=== PATIENT | female | born 1975 | race Hispanic/Latino ===

== ENCOUNTER → 2022-12-23 16:20 | Outpatient (CLI) | payer OTHER, SELFPAY ==
--- NOTE | 2022-12-23 16:23 | DI.US.S_ITS ---
PROCEDURE: US THYROID INDICATIONS: THYROID NODULE TECHNIQUE: Real-time scanning was performed of the thyroid gland, with image documentation. COMPARISON: None. FINDINGS: Right: Thyroid lobe measures 5.011.2 x 1.3 cm, and has a cystic nodule, but is otherwise homogeneous in echotexture. Left: Thyroid lobe measures 4.3 x 0.7 x 1.3 cm, and is homogenous in echotexture. Isthmus: 3 mm thick. Nodule number: 1 Location: Right lower pole Size: 0.5 x 0.4 x 0.4 cm. Composition: Predominantly cystic Echogenicity: Hypoechoic Shape: wider than tall. Margins: Smooth Echogenic foci: Macro calcifications Total points: 3 ACR TI-RADS category: Mildly suspicious IMPRESSION: Solitary small, mildly suspicious thyroid nodule in the right lobe, measuring 5 mm. Based on recommendations below, no further follow-up is required. ACR TI-RADS definitions and recommendations: TI-RADS 1 (benign): 0 points. FNA not needed. TI-RADS 2 (not suspicious): 2 points. FNA not needed. TI-RADS 3 (mildly suspicious): 3 points. * FNA if 2.5 cm or larger, follow up if 1.5 cm or larger (at 1, 3, and 5 years). TI-RADS 4 (moderately suspicious): 4-6 points. * FNA if 1.5 cm or larger, follow up if 1 cm or larger (at 1, 2, 3, and 5 years). TI-RADS 5 (highly suspicious): 7 points or more. * FNA if 1 cm or larger, follow up if 0.5 cm or larger (every year for 5 years). Dictated by: Sumit Marte M.D. on 12/24/2022 at 9:14 Approved by: Sumit Marte M.D. on 12/24/2022 at 9:18
== END ==
PROVIDERS: Family Provider Obstetrics & Gynecology; PCP Family Medicine; Referring Provider Otolaryngology; Visit Provider Otolaryngology
DX: E04.1 Nontoxic single thyroid nodule (principal)
CPT/HCPCS: 76536

== ENCOUNTER 2024-07-01 09:04 | Emergency (ER) | payer OTHER, SELFPAY ==
[2024-07-01 09:22] VITALS: BP 130/72; PULSE 85; RESP 16; TEMP 36.6; O2SAT 100; BMI 20.2
--- NOTE | 2024-07-01 10:29 | PC.NURSE ---
Pt reports post menopausal bleeding, cramping, and bloating.
[2024-07-01 10:39] LABS: Amorphous Sediment Urine 1+; Bacteria Urine None Seen; Culture Indicated Urine Cult Not Indicated; RBC Urine 10-30/HPF (0-5/HPF); Squamous Epithelial Cell Urine 0-1 /HPF (0-5/HPF); Urine Volume 10mL (spun); WBC Urine 0-1/HPF (0-5/HPF)
--- NOTE | 2024-07-01 10:39 | DI.US.S_ITS ---
PROCEDURE: US PELVIC COMPLETE INDICATIONS: abnormal bleeding TECHNIQUE: Real-time scanning was performed of the pelvic organs, with image documentation. Additional endovaginal scanning was necessary due to incomplete visualization of the adnexal and endometrial structures by transabdominal scanning. COMPARISON: None. FINDINGS: Uterus: Uterus is retroverted and bulky at 8.8 x 5.6 x 5.9 cm. The myometrium is quite heterogenous. The endometrium measures 12.4 mm combined thickness. Fundal myometrial mass lesion 2.9 x 2.5 x 3.4 connects to the endometrial stripe and shows peripheral hypervascularity Ovaries: Nonvisualized Other: Moderate free fluid IMPRESSION: Irregular endometrium associated with mass lesion extending into the myometrium. Advise PLAYGROUND OFFICIAL consult and endometrial biopsy. Approved by: Huy Burgos M.D. on 07/01/2024 at 11:30
--- NOTE | 2024-07-01 10:55 | ED.FEMALEGU ---
HPI - Female Genitourinary General Chief complaint: Urogenital-Female Stated complaint: period bleeding and throuigh menopause already Time Seen by Provider: 07/01/24 09:39 History of Present Illness HPI Narrative: Patient is a 48-year-old female presenting today with vaginal bleeding. She reports that she has not had menstrual period for a year and a half. She says she went menopause. However last night she started having vaginal bleeding. She filled up a full pad in about an hour and half and then had significant leakage blood this morning. She feels like she has some bloating. She has had ongoing abdominal pain decreased appetite for awhile. She denies significant weight loss. She has not currently on hormone therapy. She was started on fluoxetine month ago for depression however 2 days ago was changed to bupropion. She felt like she was having some back pain and stomach pain yesterday. She did take some Tylenol ibuprofen. Related Data Previous Rx's Medication Instructions Recorded hydrocodone 5 mg-acetaminophen 325 1 tab PO Q6H PRN pain #14 tabs 07/01/24 mg tablet megestrol 40 mg tablet 80 mg (2 x 40 mg) PO BID #60 tabs 07/01/24 Allergies Allergy/AdvReac Type Severity Reaction Status Date / Time INGREDIENT: NKDA - NO KNOWN Allergy Unknown Uncoded 01/04/18 12:17 DRUG ALLERGIES Patient History Substance Use Type: does not use Exam Initial Vital Signs Initial Vital Signs: Vital Signs Temperature 97.8 F 07/01/24 09:22 Pulse Rate 85 07/01/24 09:22 Respiratory Rate 16 07/01/24 09:22 Blood Pressure 130/72 07/01/24 09:22 Pulse Oximetry 100 07/01/24 09:22 Oxygen Delivery Method Room Air 07/01/24 09:22 GENERAL: Alert pleasant well-appearing 48-year-old female and in no acute distress. HEENT: Head atraumatic,EOMI, pupils reactive, face symmetric, moist mucous membranes CARDIOVASCULAR: Regular rate and rhythm without murmurs, rubs or gallops. RESPIRATORY: Breath sounds equal bilaterally, no wheezes rales or rhonchi. ABDOMEN: Soft, nontender. Normoactive bowel sounds all 4 quadrants. No guarding or rebound. : No significant CVA pain EXTREMITIES: Normal range of motion, no clubbing or edema. Neurovascularly intact NEUROLOGICAL: Alert and oriented x4.Normal gait and speech. SKIN: Warm, dry, no laceration, no petechiae, no rashes or lesions. Course Orders Ordered: ED Orders 07/01/24 10:55 CT abdomen pelvis w con Stat 07/01/24 11:20 CBC Auto Diff [Complete Blood Count AUTO DIFF] Stat CMP [Comprehensive Metabolic Panel] Stat 07/01/24 15:30 Hemoglobin and Hematocrit Stat Discontinued Medications Hydrocodone Bitart/Acetaminophen (Hydrocodone/Acet 5/325 Prepack) 1 bottle MISC DIRECTED ONE Stop: 07/01/24 16:59 Last Admin: 07/01/24 17:07 Dose: Not Given Documented By: EDGARDO Tranexamic Acid 1,000 mg/ (Sodium Chloride) 100 mls @ 200 mls/hr IV NOW ONE Stop: 07/01/24 13:36 Last Infusion: 07/01/24 15:12 Dose: Infused Documented By: Admin: 07/01/24 13:22 Dose: 200 mls/hr Documented By: EDGARDO Acetaminophen (Ofirmev) 1,000 mg in 100 mls @ 400 mls/hr IV NOW ONE Stop: 07/01/24 13:24 Last Infusion: 07/01/24 13:48 Dose: Infused Documented By: Admin: 07/01/24 13:21 Dose: 400 mls/hr Documented By: EDGARDO Ondansetron HCl (Ondansetron 4 Mg/2 Ml Inj) 4 mg IV NOW PRN PRN Reason: Nausea And Vomiting Ondansetron HCl (Ondansetron 4 Mg Odt) 4 mg SL NOW PRN PRN Reason: Nausea And Vomiting Vital Signs Vital signs: Vital Signs - 8 hr 07/01/24 12:13 07/01/24 12:13 07/01/24 14:55 Pulse Rate 70 77 Respiratory Rate Blood Pressure 100/52 L Pulse Oximetry 100 100 Oxygen Delivery Method 07/01/24 14:55 07/01/24 15:00 07/01/24 15:28 Pulse Rate 76 Respiratory Rate 16 Blood Pressure 101/65 Pulse Oximetry 99 99 Oxygen Delivery Method 07/01/24 15:28 07/01/24 17:05 Pulse Rate 78 Respiratory Rate 16 Blood Pressure 129/60 113/61 Pulse Oximetry 98 Oxygen Delivery Method Room Air Room Air MDM - Female Genitourinary Lab Data 07/01/24 15:30 07/01/24 11:20 Labs: Lab Results 07/01/24 07/01/24 07/01/24 Range/Units 09:50 11:20 15:30 WBC 7.8 (4.5-11.0) X10^3/uL RBC 4.23 (4.0-5.2) X10^6/uL Hgb 11.5 L 10.8 L (12.0-16.0) g/dL Hct 35.0 L 32.9 L (36-46) % MCV 82.6 (80-100) fL MCH 27.3 (26-34) PG MCHC 33.0 (30-36) % RDW 14.0 (11.6-14.8) % Plt Count 271 (150-400) X10^3/uL Neut % (Auto) 73.6 (50-75) % Lymph % (Auto) 20.9 L (25-40) % [place] % (Auto) 4.4 (3-14) % Eos % (Auto) 0.7 L (2-4) % Baso % (Auto) 0.4 (0-2) % Neut # (Auto) 5700 (3035-0715) /uL Lymph # (Auto) 1600 (0208-9149) /uL [place] # (Auto) 300 (0-900) /uL Eos # (Auto) 100 (0-450) /uL Baso # (Auto) 0 (0-100) /uL Sodium 137 (137-145) mmol/L Potassium 3.8 (3.4-5.1) mmol/L Chloride 108 H (98-107) mmol/L Carbon Dioxide 23 (22-32) mmol/L BUN 9 (7-17) mg/dL Creatinine 0.58 (0.52-1.04) mg/dL Estimated GFR > 60 (>60) mL/min BUN/Creatinine Ratio 15.5 (6-22) Glucose 104 H (70-100) mg/dL Calcium 8.5 (8.4-10.2) mg/dL Total Bilirubin 0.7 (0.2-1.3) mg/dL AST 24 (14-36) IU/L ALT 15 (<35) IU/L Alkaline Phosphatase 76 (38-126) U/L Total Protein 7.1 (6.3-8.2) g/dL Albumin 4.3 (3.5-5.0) g/dL Globulin 2.8 (1.7-4.1) g/dL Albumin/Globulin Ratio 1.5 (1.0-2.8) Urine RBC 10-30/hpf H (0-5/HPF) Urine WBC 0-1/hpf (0-5/HPF) Ur Squamous Epith Cells 0-1 /hpf (0-5/HPF) Amorphous Sediment 1+ Urine Bacteria None seen (None) Ur Culture Indicated? Cult not indicated Vol Urine Centrifuged 10ml (spun) Point of Care Testing Test Results Negative Urine Dip Bedside Urine Glucose Negative Bedside Urine Bilirubin - Negative Bedside Urine Ketone - Negative Urine Specific [place] 1.015 Bedside Urine Occult Blood ++ Bedside Urine pH 5.5 Bedside Urine Protein - Negative Bedside Urine Urobilinogen - Negative Bedside Urine Nitrite - Negative Bedside Urine Leukocytes - Negative Esterase Imaging Data US - DE ICER FINISHER: Radiologist's Impression: PROCEDURE: US PELVIC COMPLETE INDICATIONS: abnormal bleeding TECHNIQUE: Real-time scanning was performed of the pelvic organs, with image documentation. Additional endovaginal scanning was necessary due to incomplete visualization of the adnexal and endometrial structures by transabdominal scanning. COMPARISON: None. FINDINGS: Uterus: Uterus is retroverted and bulky at 8.8 x 5.6 x 5.9 cm. The myometrium is quite heterogenous. The endometrium measures 12.4 mm combined thickness. Fundal myometrial mass lesion 2.9 x 2.5 x 3.4 connects to the endometrial stripe and shows peripheral hypervascularity Ovaries: Nonvisualized Other: Moderate free fluid IMPRESSION: Irregular endometrium associated with mass lesion extending into the myometrium. Advise DE ICER FINISHER consult and endometrial biopsy. Approved by: Huy Burgos M.D. on 07/01/2024 at 11:30 CT scan - abdomen/pelvis: Radiologist's Impression: PROCEDURE: CT ABDOMEN PELVIS W CON INDICATIONS: Pain, weight loss, postmenopausal bleeding TECHNIQUE: After the administration of intravenous contrast, axial sections acquired from the lung bases to the pubic symphysis. Coronal and sagittal reformats were performed. For radiation dose reduction, the following was used: automated exposure control, adjustment of mA and/or kV according to patient size. COMPARISON: None. FINDINGS: Lower thorax: Bilateral breast prosthesis. Lung bases are clear. Liver: Normal in size and attenuation. No contour deformity present. Biliary system: No calcified cholelithiasis or pericholecystic inflammation. No intra or extrahepatic bile duct dilatation. Pancreas: Unremarkable without mass or inflammation evident. Spleen: Normal in size and density. Adrenals: Normal morphology and density. Reproductive system: Heterogenous retroverted uterus with irregular endometrial stripe and heterogenous enhancement of the myometrium. Heterogenous periuterine vessels may reflect pelvic vascular congestion. Moderate free fluid in the pelvis.6 Urinary system: Normal renal size and attenuation. No renal calculi, hydronephrosis, or solid mass present. Urinary bladder unremarkable. Gastrointestinal system: The bowel is unremarkable without evidence of bowel obstruction or inflammation. The stomach appears unremarkable. Appendix: No findings to suggest acute appendicitis. Peritoneal spaces: No mesenteric or retroperitoneal adenopathy. Vasculature: The IVC, aorta and iliac vasculature are unremarkable. Abdominal wall: Abdominal wall intact without evidence of ventral or inguinal hernias. Musculoskeletal: Normal bone mineralization. No acute fractures. IMPRESSION: Heterogenous bulky enhancing uterus. Advise endometrial biopsy Moderate free fluid in the pelvis. No adenopathy. Approved by: Huy Burgos M.D. on 07/01/2024 at 11:18 [facility] Narrative Medical decision making narrative: [facility] CC: Vaginal bleeding Complicating co-morbidities: in menopause Differential considered: Fibroid bleeding endometrial cancer Exam documented above, pertinent findings include: Patient does have bleeding on her pelvic exam, abdomen soft nontender Lab Test results independently reviewed as above. Pertinent findings: WBC 7.8 hemoglobin 11 0.5/35.0 platelets 271 CMP sodium was 137 potassium 3.8 chloride 108 creatinine 0.5 Imaging studies independently reviewed: Ultrasound concerning for endometrial mass as well as CT Consultations: 1310 Dr. Solorzano, updated symptoms test results recommends TXA is on her way into see and evaluate patient to decide further plan 15:30 Melissa Dubois, sada to follow-up outpatient recommended Megace 80 mg b.i.d. to help with bleeding 16:30 Eloise Greenwood: Dr. Rosalind Sims also agreed okay to follow-up outpatient see that if still bleeding could give p.o. TXA or megace Treatments: TXA Tylenol Re-evaluations: After TXA patient is ambulatory bleeding has slowed but still there. Vitals remained stable she has been to the restroom. She does have some pain. Discussion: Patient is a healthy 48-year-old female who presents today with sudden onset painless vaginal bleeding. She does have some abdominal bloating but abdominal exam is really benign. She have vaginal bleeding but it does clear with suction. CT and ultrasound concerning for heterogeneous mass with extension and a hypervascular mass as well. She does have a history of abdominal plasty with mesh as well Dr. Rashad VAZQUEZ was in ED to see and evaluate patient. She has significant concern for malignancy and recommends TXA and for patient to be transferred for further workup and evaluation. Concerns that there is a heterogeneous mass with extension into the myometrium it is hypervascular patient has a history of abdominal plasty with mesh which could be challenging for biopsy. Patient monitored in the ED vitals remained stable she did have some bleeding but overall felt like bleeding was controlled and slowing. To Home Worker/Onc specialist updated on case both had similar plans. Updated patient and bedside. Gave strict return precautions. Talked about possible hysterectomy as well. Discharge Plan Departure Patient Disposition: Home Clinical Impression: Vaginal bleeding Activity Restrictions/Additional Instructions: At this time Eloise greenwood and Melissa should call you tomorrow to schedule appointment Call your primary care provider tomorrow you may need a referral as well I talked with Melissa Dubois [phone] Eloise Greenwood: Dr. Rosalind Sims [phone] May take Megace 80 mg twice a day for bleeding [place] 1 tablet every 4-6 hours if needed for severe pain If you should have increased bleeding going through more than 2 pads in 1 hour dizziness lightheadedness pain return to emergency department immediately we will transfer you if needed CONTROLLED SUBSTANCE DISCHARGE (Narcotoic/benzodiazepine/Flexeril/Phenergan) 1. You have been prescribed narcotic medications, it does have acetaminophen/Tylenol/paracetamol in it, DO NOT TAKE MORE THAN 4,00mg in 24 hours of Tylenol. TRAMADOL DOES NOT CONTAIN TYLENOL 2. Please understand that we cannot provide further refills of narcotics, benzodiazepines or controlled substances through the ED and her pain management will need to be through your provider. 3. While on these medications you cannot drive or operate heavy machinery. 4. You cannot sign legal documents or perform any duties such as this. 5. As long as you're taking opiate pain medications he should also be taking a stool softener such as Colace, Dulcolax, MiraLAX or prune juice, to help avoid constipation. Prescriptions: New megestrol 40 mg tablet 80 mg PO BID Qty: 60 0RF hydrocodone-acetaminophen 5-325 mg tablet 1 tab PO Q6H PRN (Reason: pain) Qty: 14 0RF Referrals: Emi Colby DO [Primary Care Provider] - Stand Alone Forms: Patient Portal/API
[2024-07-01 11:28] LABS: Add Manual Diff / Slide Review NO; Basophils Absolute Auto 0 /uL (0-100); Basophils Percent Auto 0.4 % (0-2); Eosinophils Absolute Auto 100 /uL (0-450); Eosinophils Percent Auto 0.7 % (2-4); Hemoglobin 11.5 g/dL (12.0-16.0); Lymphocytes Absolute Auto 1600 /uL (1100-4500); Lymphocytes Percent Auto 20.9 % (25-40); Mean Corpuscular Hemoglobin 27.3 PG (26-34); Mean Corpuscular Volume 82.6 fL (80-100); Monocytes Absolute Auto 300 /uL (0-900); Monocytes Percent Auto 4.4 % (3-14); Neutrophils Absolute Auto 5700 /uL (1500-7000); Neutrophils Percent Auto 73.6 % (50-75); Platelet Count 271 X10^3/uL (150-400); Red Blood Cell Count 4.23 X10^6/uL (4.0-5.2); White Blood Cell Count 7.8 X10^3/uL (4.5-11.0)
[2024-07-01 11:41] LABS: Alanine Aminotransferase 15 IU/L (<35); Albumin 4.3 g/dL (3.5-5.0); Albumin Globulin Ratio 1.5 (1.0-2.8); Alkaline Phosphatase 76 U/L (38-126); Aspartate Aminotransferase 24 IU/L (14-36); BUN Creatinine Ratio 15.5 (6-22); Bilirubin Total 0.7 mg/dL (0.2-1.3); Blood Urea Nitrogen 9 mg/dL (7-17); Calcium 8.5 mg/dL (8.4-10.2); Carbon Dioxide 23 mmol/L (22-32); Chloride 108 mmol/L (98-107); Estimated Glomerular Filt Rate > 60 mL/min (>60); Globulin 2.8 g/dL (1.7-4.1); Glucose 104 mg/dL (70-100); HEMOLYSIS 27 (0-50); Potassium 3.8 mmol/L (3.4-5.1); Sodium 137 mmol/L (137-145); Total Protein 7.1 g/dL (6.3-8.2)
[2024-07-01 12:13] VITALS: BP 100/52; PULSE 70; O2SAT 100
[2024-07-01] MEDS: ACETAMINOPHEN IV 1,000 MG/100 ML VIAL 400 MG IV (13:21)
[2024-07-01] MEDS: TRANEXAMIC ACID 1,000 MG in SODIUM CHLORIDE 0.9% 100 ML 200 MG IV (13:22)
[2024-07-01 14:55] VITALS: BP 101/65; PULSE 77; O2SAT 100
[2024-07-01 15:00] VITALS: PULSE 76; O2SAT 99
[2024-07-01 15:28] VITALS: BP 129/60; RESP 16; O2SAT 99
[2024-07-01 15:36] LABS: Hematocrit 32.9 % (36-46); Hemoglobin 10.8 g/dL (12.0-16.0)
[2024-07-01 17:05] VITALS: BP 113/61; PULSE 78; RESP 16; O2SAT 98
--- NOTE | 2024-07-01 19:20 | PM.CN ---
History of Present Illness Consult details Date Patient Seen: 07/01/24 Time Patient Seen: 13:20 Chief complaint: period bleeding and throuigh menopause already Reason for consult: heavy PMB with abnormal pelvic imaging Requesting provider: Apple Rachel Narrative: 48yo postmenopausal female presents to ED with acute onset heavy vaginal bleeding since evening prior. Pt presented to ED with c/o heavy vaginal bleeding, saturating pads <1h since onset of bleeding yesterday. Patient states that prior to onset of this bleeding she had not had any menstrual cycle for 18mos and presumed she was in menopause. She notes that for the last 6-12mos she has been experiencing increased abdominal fullness/bloating as well as diffuse pain that has been bothersome to her. She states a prior h/o ventral mesh that was placed at time of abdominoplasty for correction of severe diastsis rectus when pt completed childbearing (youngest child now 15yo). She states that in the past 2-3mos the bloating will be so severe and painful that she feels like she can palpate the suture from the ventral mesh. She denies any fever, unintentional weight loss or early satiety. Family history remarkable only for maternal grandmother with h/o stomach cancer. Has not seen PHOTOTYPESETTER OPERATOR in approximately 13yrs but states she did have a normal pap smear last year at [facility] ([facility]). Imaging obtained in ED significant for heterogenous uterine mass with extension to myometrium. OBGYN consulted for further evaluation and management in setting of abnormal pelvic imaging as well as ongoing heavy vaginal bleeding. Meds Home Medications and Allergies Home Medications Medication Instructions Recorded Confirmed Type hydrocodone 5 mg-acetaminophen 325 1 tab PO Q6H PRN pain #14 tabs 07/01/24 Rx mg tablet megestrol 40 mg tablet 80 mg (2 x 40 mg) PO BID #60 tabs 07/01/24 Rx Allergies Allergy/AdvReac Type Severity Reaction Status Date / Time INGREDIENT: NKDA - NO KNOWN Allergy Unknown Uncoded 01/04/18 12:17 DRUG ALLERGIES Review of Systems Review of Systems ROS: Yes All systems reviewed with the patient and are negative except as otherwise documented Exam Vital Signs (past 8 hours): - 07/01/24 12:13 07/01/24 12:13 07/01/24 14:55 Pulse Rate 70 77 Respiratory Rate Blood Pressure 100/52 L Pulse Oximetry 100 100 Oxygen Delivery Method 07/01/24 14:55 07/01/24 15:00 07/01/24 15:28 Pulse Rate 76 Respiratory Rate 16 Blood Pressure 101/65 Pulse Oximetry 99 99 Oxygen Delivery Method 07/01/24 15:28 07/01/24 17:05 Pulse Rate 78 Respiratory Rate 16 Blood Pressure 129/60 113/61 Pulse Oximetry 98 Oxygen Delivery Method Room Air Room Air Oxygen Delivery Method Room Air Const General: cooperative, well groomed, No acute distress and ill appearing Nutritional Appearance: average body habitus Orientation: alert, awake and oriented x3 Limitations: mental status not altered HENMT Head: normal to inspection Neck Thyroid: thyroid normal Resp Effort & Inspection: normal respiratory effort Cardio Pulses: normal peripheral pulses GI Inspection: normal to inspection Palpation: soft, no hepatosplenomegaly and tender (mild tenderness with palpation of both lower quadrants, no rebound/guarding) Other: noted pfannensteil-type incision pt identifies as from abdominoplasty/diastsis correction Speculum Exam - Vagina: normal appearance of the vagina Speculum Exam - Cervix: nontender and other (unable to visualize secondary to bleeding, palpates wnl without mass ) Bimanual Exam- Vagina & Uterus: No tender Skin General: no rashes or lesions noted Neuro General: patient alert, patient awake and patient oriented x3 Extrem General: normal to inspection Psych Mental Status: mental status grossly normal Judgment: judgment good Objective Labs 07/01/24 15:30 07/01/24 11:20 Labs: Laboratory Results - last 24 hr 07/01/24 07/01/24 07/01/24 09:50 11:20 15:30 WBC 7.8 RBC 4.23 Hgb 11.5 L 10.8 L Hct 35.0 L 32.9 L MCV 82.6 MCH 27.3 MCHC 33.0 RDW 14.0 Plt Count 271 Neut % (Auto) 73.6 Lymph % (Auto) 20.9 L [place] % (Auto) 4.4 Eos % (Auto) 0.7 L Baso % (Auto) 0.4 Neut # (Auto) 5700 Lymph # (Auto) 1600 [place] # (Auto) 300 Eos # (Auto) 100 Baso # (Auto) 0 Sodium 137 Potassium 3.8 Chloride 108 H Carbon Dioxide 23 BUN 9 Creatinine 0.58 Estimated GFR > 60 BUN/Creatinine Ratio 15.5 Glucose 104 H Calcium 8.5 Total Bilirubin 0.7 AST 24 ALT 15 Alkaline Phosphatase 76 Total Protein 7.1 Albumin 4.3 Globulin 2.8 Albumin/Globulin Ratio 1.5 Urine RBC 10-30/hpf H Urine WBC 0-1/hpf Ur Squamous Epith Cells 0-1 /hpf Amorphous Sediment 1+ Urine Bacteria None seen Ur Culture Indicated? Cult not indicated Vol Urine Centrifuged 10ml (spun) [facility] Medical History (Updated 07/02/24 @ 09:43 by Linette Solorzano MD) Uterine mass Post-menopausal bleeding Tobacco & Substance Use Smoking Status: Never smoker Assessment & Plan Assessment and plan (1) Post-menopausal bleeding: Status: Acute (2) Uterine mass: Status: Acute Plan 48yo postmenopausal female, ED consultation for further eval/mgmt in setting of heavy postmenopausal bleeding with abnormal pelvic imaging Heavy postmenopausal bleeding Admin one dose IV TXA now Differential includes submucosal fibroid, neoplasm; favor latter secondary to CT imaging and atypical appearance of fibroid given concerns for malignancy, recommendations communicated to ED provider for ER:ER transfer to facility with certified pharmacy technician-onc in setting of active bleeding, lack of gynonc as well as frozen pathology at our facility with high risk of intraoperative complication in hinduism of malignancy patient in agreement with recommendation Thank you for this consult Please do not hesitate to re-consult/call in hinduism of any acute clinical changes Time-Based Coding :: [TOTAL MINUTES] spent with patient and on the chart (including review of chart, obtaining history, exam, reviewing outside data, placing orders, documenting exam and treatment plan, and counseling patient) on [DATE].
== END 2024-07-01 17:09 | disposition home or self-care (01) ==
PROVIDERS: Emergency Provider Emergency Medicine; Family Provider Obstetrics & Gynecology; PCP Family Medicine
DX: N95.0 Postmenopausal bleeding (principal); N85.8 Other specified noninflammatory disorders of uterus; R10.2 Pelvic and perineal pain; R63.4 Abnormal weight loss
CPT/HCPCS: 36415; 74177; 76830; 76856; 80053; 81003; 81015; 81025; 85014; 85018; 85025; 96365; 96366; 96368; 99285; J0134